=== PATIENT | female | born 1995 | race Asian ===

== ENCOUNTER 2017-11-27 12:54 | Emergency (ER) | payer OTHER ==
[2017-11-27 13:02] VITALS: BP 101/60; PULSE 108; TEMP 99.7; BMI 24.7
--- NOTE | 2017-11-27 13:19 | PDOC ---
History of Present Illness <Chao Griffin - Last Filed: 11/27/17 17:12> - General History Source: Patient Exam Limitations: No Limitations - History of Present Illness Travel History: Yes ([place] in August 2017) Initial Comments: 11/27/17 13:17 22F with pmh of asthma and hypothyroidism presents to the ED with 3 days of fluffy white clump, pruritic vaginal discharge with dysuria, subjective fevers, and month-long history of migraine headaches associated with photophobia and blurry vision She;s been having symptoms of yeast infection for the past week but got worse over the past 3 days when she started having painful urination. She also endorses left flank pain. Tried taking a tylenol yesterday, without relief. Tried taking 200mg advil in the past for the headaches but withoput relief either. <Neville Sloan - Last Filed: 11/27/17 17:32> - General Chief Complaint: Headache Stated Complaint: IRREGULAR VAGINAL DISCHARGE, HEADACHE Time Seen by Provider: 11/27/17 13:07 Past History <Chao Griffin - Last Filed: 11/27/17 17:12> - Past Medical History Asthma: Yes COPD: No - Suicide/Smoking/Psychosocial Hx Smoking History: Never smoked Information on smoking cessation initiated: No Hx Alcohol Use: No Drug/Substance Use Hx: No Substance Use Type: None <Neville Sloan - Last Filed: 11/27/17 17:32> - Past Medical History Allergies/Adverse Reactions: Allergies Allergy/AdvReac Type Severity Reaction Status Date / Time egg Allergy Verified 11/27/17 12:57 Fish Containing Products Allergy Verified 11/27/17 12:57 Home Medications: Ambulatory Orders Azithromycin 1 gm PO ONCE #1 packet 11/27/17 Levothyroxine [Synthroid -] 75 mcg PO DAILY 11/27/17 Review of Systems - Review of Systems Able to Perform ROS?: Yes Constitutional: Yes: Chills, Fever. No: Diaphoresis HEENTM: Yes: Blurred Vision (on/off, during migraines only). No: Eye Pain, Tearing, Recent change in vision Respiratory: No: Cough, Shortness of Breath, SOB with Exertion, SOB at Rest, Productive cough Cardiac (ROS): No: Chest Pain, Irregular Heart Rate, Lightheadedness, Palpitations ABD/GI: Yes: Nausea. No: Abdominal Distended, Constipated, Diarrhea, Vomiting : Yes: Burning, Dysuria, Discharge, Flank Pain. No: Hematuria Musculoskeletal: No: Symptoms Reported Integumentary: No: Symptoms Reported Neurological: No: Symptoms reported <Neville Sloan - Last Filed: 11/27/17 17:32> *Physical Exam - Vital Signs Last Vital Signs Temp Pulse Resp BP Pulse Ox 99.7 F H 108 H 18 101/60 100 11/27/17 12:58 11/27/17 12:58 11/27/17 12:58 11/27/17 12:58 11/27/17 12:58 <Chao Griffin - Last Filed: 11/27/17 17:12> - Vital Signs Last Vital Signs Temp Pulse Resp BP Pulse Ox 99.7 F H 108 H 18 101/60 100 11/27/17 12:58 11/27/17 12:58 11/27/17 12:58 11/27/17 12:58 11/27/17 12:58 - Physical Exam General Appearance: Yes: Nourished, Appropriately Dressed. No: Apparent Distress HEENT: positive: EOMI, BLANCA, Normal ENT Inspection Respiratory/Chest: positive: Lungs Clear, Normal Breath Sounds. negative: Chest Tender, Respiratory Distress Cardiovascular: positive: Regular Rhythm, S1, S2, Tachycardia Female Pelvic Exam: positive: normal external exam, cervical os closed, discharge (greenish), adnexal tenderness, other (unable to assess CMT). negative: vaginal bleeding Gastrointestinal/Abdominal: positive: Normal Bowel Sounds, Flat, Soft. negative : Tender, Distended, Guarding, Rebound, Tenderness Musculoskeletal: positive: CVA Tenderness (L) Extremity: positive: Normal Capillary Refill Integumentary: positive: Normal Color, Dry, Warm Neurologic: positive: Fully Oriented, Alert, Normal Mood/Affect, Normal Response , Motor Strength 5/5 <Neville Sloan - Last Filed: 11/27/17 17:32> ED Treatment Course - LABORATORY CBC & Chemistry Diagram: 11/27/17 13:21 11/27/17 13:21 - ADDITIONAL ORDERS Additional order review: Laboratory Results 11/27/17 11/27/17 11/27/17 15:42 13:47 13:21 Sodium 139 Potassium 4.1 Chloride 107 Carbon Dioxide 25 Anion Gap 7 L BUN 11 Creatinine 0.8 Creat Clearance w eGFR > 60 Random Glucose 82 Calcium 9.5 Total Bilirubin 0.4 AST 35 ALT 21 Alkaline Phosphatase 59 Total Protein 8.1 Albumin 4.3 Urine Color Straw Cancelled Urine Appearance Clear Cancelled Urine pH 7.0 Cancelled Ur Specific [place] 1.005 Cancelled Urine Protein Negative Cancelled Urine Glucose (UA) Negative Cancelled Urine Ketones Negative Cancelled Urine Blood Negative Cancelled Urine Nitrite Negative Cancelled Urine Bilirubin Negative Cancelled Urine Urobilinogen Negative Cancelled Ur Leukocyte Esterase 3+ H Cancelled Urine WBC (Auto) 50 Urine RBC (Auto) 2 Ur Epithelial Cells Few Urine Bacteria Rare Urine HCG, Qual Negative 11/27/17 13:21 RBC 4.53 MCV 90.3 MCHC 33.1 RDW 12.7 MPV 8.5 Neutrophils % 61.8 Lymphocytes % 25.2 Monocytes % 7.6 Eosinophils % 4.7 H Basophils % 0.7 - Medications Given in the ED: ED Medications Discontinued Medications Generic Name Dose Route Start Last Admin Trade Name Aubrey PRN Reason Stop Dose Admin Azithromycin 1 gm 11/27/17 14:43 11/27/17 15:13 Zithromax - PO 11/27/17 14:44 1 gm ONCE ONE Administration Ceftriaxone Sodium 250 mg 11/27/17 14:41 11/27/17 15:13 Rocephin - IM 11/27/17 14:42 250 mg ONCE ONE Administration Fluconazole 150 mg 11/27/17 14:45 11/27/17 15:13 Fluconazole PO 11/27/17 14:46 150 mg ONCE ONE Administration Ibuprofen 600 mg 11/27/17 13:44 11/27/17 13:57 Motrin - PO 11/27/17 13:45 600 mg ONCE ONE Administration Ondansetron HCl 4 mg 11/27/17 15:13 11/27/17 15:34 Zofran Injection IVPUSH 11/27/17 15:14 4 mg ONCE ONE Administration <Chao Griffin - Last Filed: 11/27/17 17:12> - LABORATORY CBC & Chemistry Diagram: 11/27/17 13:21 11/27/17 13:21 <Neville Sloan - Last Filed: 11/27/17 17:32> Medical Decision Making - Medical Decision Making 11/27/17 13:27 22f with symptoms of UTI/yeast infection and left flank pain for 3 days. UTI vs pyelonephritis vs yeast infection vs nephro Will check basic labs, UA, Ucx 11/27/17 13:28 <Neville Sloan - Last Filed: 11/27/17 17:32> *DC/Admit/Observation/Transfer - Discharge Dispostion Decision to Admit order: No <Chao Griffin - Last Filed: 11/27/17 17:12> - Discharge Dispostion Decision to Admit order: No <Neville Sloan - Last Filed: 11/27/17 17:32> Diagnosis at time of Disposition: PID (acute pelvic inflammatory disease) - Discharge Dispostion Disposition: HOME Condition at time of disposition: Improved - Prescriptions Prescriptions: Azithromycin 1 gm PO ONCE #1 packet - Patient Instructions Printed Discharge Instructions: DI for Urinary Tract Infection (UTI) Additional Instructions: Come back to the ER for any new, worsening or concerning symptom. supervisor powder and primer canning your antibiotic and take it a week from now, December 04.
--- NOTE | 2017-11-27 13:37 | PDOC ---
Attending Attestation - Resident Resident Name: Neville Sloan - ED Attending Attestation I have performed the following: I have examined & evaluated the patient, The case was reviewed & discussed with the resident, I agree w/resident's findings & plan, Exceptions are as noted - HPI HPI: 11/27/17 14:37 The patient is a 22 year old female with a significant past medical history of asthma who presents to the ER with 3 day history of white clored vaginal discharge. Patient is also complaining of subjective fevers, dysuria, nausea, and mild left flank pain. Patient denies any history of UTIs in the past. Patient states she is sexually active with her new for the past two months and does not use protection. Patient has no history of STDs. The patient denies chest pain, shortness of breath, headache, and dizziness. Denies chills, vomit, diarrhea, and constipation. Denies frequency, urgency, and hematuria. Allergies: NKA Past surgical history: None reported Social history: No reported alcohol, drug, or cigarette use. - Physicial Exam PE: 11/27/17 14:40 GENERAL: The patient is awake, alert, and fully oriented, Nontoxic - in no acute distress. HEAD: Normocephalic, atraumatic. EYES: extraocular movements intact, sclera anicteric, conjunctiva clear. LUNGS: Breath sounds equal, clear to auscultation bilaterally. No wheezes, no rhonchi, no rales. HEART: Regular rate and rhythm, normal S1 and S2 without murmur, rub or gallop. ABDOMEN: Soft, nontender, normoactive bowel sounds. No guarding, no rebound. No CVA tenderness EXTREMITIES: Normal range of motion, no edema. No clubbing or cyanosis. No cords, erythema, or tenderness. NEUROLOGICAL: No facial assymetry, Normal speech, moving all 4 extremities spontaneously and symmetrically PSYCH: Normal mood, normal affect. SKIN: Warm, Dry, normal turgor, - Medical Decision Making 11/27/17 14:07 22y F hx of asthma presents with vaginal dc for approx 1 week, worsening over the pas 3 days, whitish/yellowish in color. +sexually active with of 2 months. endorses chills w/o fevers, also endorses L flank pain. ddx - uti, gc/utheritis will ck ua, gc 11/27/17 17:16 will treat for PID ua noted labs unremarkble
[2017-11-27 13:43] LABS: BASO % 0.7 % (0-2.0); EOS % 4.7 % (0-4.5); HEMATOCRIT 40.9 % (32.4-45.2); HEMOGLOBIN 13.5 GM/dL (10.7-15.3); LYMPH % 25.2 % (8-40); MCH 29.9 pg (25.7-33.7); MCHC 33.1 g/dl (32.0-36.0); MEAN CELL VOLUME 90.3 fl (80-96); MEAN PLT VOLUME 8.5 fl (7.5-11.1); MONO % 7.6 % (3.8-10.2); NEUT % 61.8 % (42.8-82.8); PLATELET COUNT 266 K/MM3 (134-434); RBC 4.53 M/mm3 (3.60-5.2); RDW 12.7 % (11.6-15.6); WHITE BLOOD COUNT 7.5 K/mm3 (4.0-10.0)
[2017-11-27] MEDS ORDERED: IBUPROFEN 600 MG TABLET (FP) PO ONE ×2 (13:44→13:52)
[2017-11-27 14:10] LABS: ALBUMIN 4.3 g/dl (3.4-5.0); ALK PHOS 59 U/L (45-117); ANION GAP 7 MMOL/L (8-16); BILIRUBIN,TOTAL 0.4 mg/dL (0.2-1); BLOOD UREA NITROGEN 11 mg/dL (7-18); CALCIUM 9.5 mg/dL (8.5-10.1); CHLORIDE 107 mmol/L (98-107); CO2 25 mmol/L (21-32); CREATININE 0.8 mg/dL (0.55-1.3); GLUCOSE,RANDOM 82 mg/dL (74-106); POTASSIUM 4.1 mmol/L (3.5-5.1); SGOT/AST 35 U/L (15-37); SGPT/ALT 21 U/L (13-61); SODIUM 139 mmol/L (136-145); TOT PROT 8.1 g/dl (6.4-8.2)
[2017-11-27] MEDS ORDERED: AZITHROMYCIN 1 GM PACKET PO ONE (14:43)
[2017-11-27] MEDS ORDERED: FLUCONAZOLE 150 MG TABLET PO ONE (14:45)
[2017-11-27] MEDS ORDERED: AZITHROMYCIN 250 MG TABLET ONE (15:03)
[2017-11-27] MEDS ORDERED: ONDANSETRON 4 MG/2 ML VIAL IVPUSH ONE (15:13)
[2017-11-27] MEDS ORDERED: ONDANSETRON 4 MG/2 ML VIAL ONE (15:27)
[2017-11-27 16:38] LABS: URINE APPEARANCE CLEAR; URINE BILIRUBIN NEGATIVE (<2.0 mg/dL); URINE COLOR STRAW; URINE GLUCOSE (UA) NEGATIVE (NEGATIVE); URINE KETONE NEGATIVE (NEGATIVE); URINE NITRITE NEGATIVE (NEGATIVE); URINE PROTEIN NEGATIVE (NEGATIVE); URINE UROBILINOGEN NEGATIVE mg/dL (0.2-1.0)
[2017-11-27 16:49] LABS: URINE LEUK ESTERASE 3+ (NEGATIVE)
[2017-11-27 16:58] LABS: EPI CELLS FEW /HPF (FEW); URINE BACTERIA RARE /hpf (NONE SEEN)
== END 2017-11-27 17:31 | disposition home or self-care (01) ==
LOC: JER 12:54
PROC: 3E033GC Introduction of Other Therapeutic Substance into Peripheral Vein, Percutaneous Approach (ICD-10-PCS; principal; 2017-11-27)
PROC: 3E02329 Introduction of Other Anti-infective into Muscle, Percutaneous Approach (ICD-10-PCS; 2017-11-27)
DX: N73.0 Acute parametritis and pelvic cellulitis (principal); N39.0 Urinary tract infection, site not specified; B95.4 Other streptococcus as the cause of diseases classified elsewhere
CPT/HCPCS: 36415; 80053; 81003; 81015; 84703; 85025; 87086; 87186; 87491; 87591; 99282-25

== ENCOUNTER 2018-10-19 22:01 | Emergency (ER) | payer OTHER ==
[2018-10-19 22:16] VITALS: TEMP 97.9; BMI 23.3
--- NOTE | 2018-10-19 22:55 | PDOC ---
*Physical Exam - Vital Signs Last Vital Signs Temp Pulse Resp BP Pulse Ox 97.9 F 97 H 97 H 127/78 100 10/19/18 22:12 10/19/18 22:12 10/19/18 22:12 10/19/18 22:12 10/19/18 22:12 Medical Decision Making - Medical Decision Making 10/19/18 22:54 Patient seen by the advanced practice provider under my direct supervision. Ancillary testing reviewed as necessary. I agree with plan as outlined by the advanced practice provider. *DC/Admit/Observation/Transfer Diagnosis at time of Disposition: Constipation - Referrals - Patient Instructions - Post Discharge Activity
--- NOTE | 2018-10-19 22:59 | PDOC ---
History of Present Illness - General Chief Complaint: Constipation Stated Complaint: ABD PAIN Time Seen by Provider: 10/19/18 22:49 History Source: Patient - History of Present Illness Initial Comments: 10/19/18 22:59 23 year old female s/p wisdom tooth removal was on percocet for pain. patient now with no bowel movement for 1 week. patient reports increased abdominal cramping after drinking prune juice. now with oliguria since this evening. 10/19/18 23:04 Past History - Past Medical History Allergies/Adverse Reactions: Allergies Allergy/AdvReac Type Severity Reaction Status Date / Time egg Allergy Verified 11/27/17 12:57 Fish Containing Products Allergy Verified 11/27/17 12:57 Home Medications: Ambulatory Orders Azithromycin 1 gm PO ONCE #1 packet 11/27/17 Levothyroxine [Synthroid -] 75 mcg PO DAILY 11/27/17 Ciprofloxacin [Cipro -] 500 mg PO Q12H #14 tablet 11/30/17 Nitrofurantoin Monohyd/M-Cryst [Macrobid -] 100 mg PO BID #14 capsule 10/20/18 Polyethylene Glycol 3350 [Miralax (For Daily Use) -] 17 gm PO DAILY #1 bottle Asthma: Yes COPD: No - Suicide/Smoking/Psychosocial Hx Smoking History: Never smoked Hx Alcohol Use: No Drug/Substance Use Hx: No Substance Use Type: None Review of Systems - Review of Systems Able to Perform ROS?: Yes Is the patient limited Citizen [place] proficient: No Constitutional: No: Symptoms Reported, See HPI, Chills, Diaphoresis, Fever, Loss of Appetite, Malaise, Night Sweats, Weakness, Weight Stable, Unintentional Wgt. Loss, Unexplained wgt Loss, Other ABD/GI: Yes: Constipated, Nausea, Abdominal cramping : Yes: Flank Pain, Urgency. No: Symptoms Reported, See HPI, Burning, Dysuria , Discharge, Frequency, Hematuria, Incontinence, Pain, Testicular Mass, Testicular Swelling, Lesions, Testicular Pain, Other Musculoskeletal: Yes: Back Pain *Physical Exam - Vital Signs Last Vital Signs Temp Pulse Resp BP Pulse Ox 97.9 F 97 H 97 H 127/78 100 10/19/18 22:12 10/19/18 22:12 10/19/18 22:12 10/19/18 22:12 10/19/18 22:12 - Physical Exam General Appearance: Yes: Appropriately Dressed Respiratory/Chest: positive: Lungs Clear, Normal Breath Sounds Gastrointestinal/Abdominal: positive: Normal Bowel Sounds, Tender (generalized) , Soft Musculoskeletal: positive: CVA Tenderness Extremity: positive: Normal Capillary Refill, Normal Inspection, Normal Range of Motion Integumentary: positive: Warm Neurologic: positive: Fully Oriented, Alert, Normal Mood/Affect Progress Note - Progress Note Progress Note: A: constipation; UTI P: ua ucx Fleet enema Medical Decision Making - Medical Decision Making 10/20/18 00:03 + BM after fleet enema. patient reports feeling better . pending UA *DC/Admit/Observation/Transfer Diagnosis at time of Disposition: Constipation Qualifiers: Constipation type: unspecified constipation type Qualified Code(s): K59.00 - Constipation, unspecified UTI (urinary tract infection) Qualifiers: Urinary tract infection type: acute cystitis Hematuria presence: without hematuria Qualified Code(s): N30.00 - Acute cystitis without hematuria - Discharge Dispostion Disposition: HOME Condition at time of disposition: Stable - Prescriptions Prescriptions: Nitrofurantoin Monohyd/M-Cryst [Macrobid -] 100 mg PO BID #14 capsule Polyethylene Glycol 3350 [Miralax (For Daily Use) -] 17 gm PO DAILY #1 bottle - Referrals - Patient Instructions Printed Discharge Instructions: Increased Dietary Fiber May Improve Constipation Conditions With Pelvic Robb Additional Instructions: drink plenty of fluids take macrobid as prescribed take miralax as prescribed. stop the percocet follow up with your doctor as soon as possible - Post Discharge Activity Forms/Work/School Notes: Back to Work
[2018-10-19] MEDS ORDERED: SODIUM PHOSPHATE/NA BIPHOS 133 ML ENEMA PR ONE (23:05)
[2018-10-19] MEDS ORDERED: ACETAMINOPHEN 325 MG TABLET (FP) PO ONE (23:06)
[2018-10-19] MEDS ORDERED: ONDANSETRON 4 MG TABLET PO ONE (23:07)
[2018-10-20] MEDS ORDERED: ONDANSETRON 8 MG TABLET (FP) PO ONE (00:08)
[2018-10-20] MEDS ORDERED: ACETAMINOPHEN 325 MG TABLET (FP) ONE (00:08)
[2018-10-20 00:33] LABS: EPI CELLS 3.2 /HPF (0-5/HPF); HYALINE CASTS 2 /lpf (0-8); URINE APPEARANCE CLEAR; URINE BACTERIA 28.4 /hpf (NEGATIVE); URINE BILIRUBIN NEGATIVE (NEGATIVE); URINE COLOR YELLOW; URINE GLUCOSE (UA) NEGATIVE (NEGATIVE); URINE KETONE NEGATIVE (NEGATIVE); URINE LEUK ESTERASE 1+ (NEGATIVE); URINE NITRITE NEGATIVE (NEGATIVE); URINE PROTEIN NEGATIVE (NEGATIVE); URINE RBC 2 /hpf (0-4); URINE UROBILINOGEN 0.2 mg/dL (0.2-1.0); URINE WBC 8 /hpf (0-5)
[2018-10-20 03:12] VITALS: BP 136/83; PULSE 89
== END 2018-10-20 00:55 | disposition home or self-care (01) ==
LOC: JER 22:01
DX: K59.00 Constipation, unspecified (principal); N30.00 Acute cystitis without hematuria; J45.909 Unspecified asthma, uncomplicated
CPT/HCPCS: 81003; 84703; 87086; 99283-25